=== PATIENT | female | born 1965 | race Hispanic/Latino ===

== ENCOUNTER 2017-03-15 12:20 | Emergency (ER) | payer MEDICAID ==
[2017-03-15 13:08] LABS: Basophils % (Auto) 0.4 % (0.0-1.8); Eosinophils % (Auto) 0.6 % (0.0-4.3); Mean Corpuscular HGB Conc 34 % (30-34); Mean Corpuscular Hemoglobin 34 pg (28-32); Mean Corpuscular Volume 99 fl (79-97); Platelet Count 194 K/mm3 (140-440); Red Blood Count 4.76 M/mm3 (3.65-5.03); Red Cell Distribution Width 12.9 % (13.2-15.2); White Blood Count 11.9 K/mm3 (4.5-11.0)
[2017-03-15 13:23] LABS: Anion Gap 25 mmol/L; Blood Urea Nitrogen 8 mg/dL (7-17); Calcium 9.3 mg/dL (8.4-10.2); Carbon Dioxide 24 mmol/L (22-30); Chloride 92.3 mmol/L (98-107); Glucose 62 mg/dL (65-100); Potassium 4.3 mmol/L (3.6-5.0); Sodium 137 mmol/L (137-145)
[2017-03-15 13:53] LABS: Urine Drugs of Abuse Note Disclamer
[2017-03-15 13:55] LABS: Bilirubin,Urine NEG (Negative); Blood,Urine NEG (Negative); Ketones,Urine 20 mg/dL (Negative); Leukocyte Esterase,Urine NEG (Negative); Mucus,Urine 2+ /HPF; Nitrite,Urine NEG (Negative)
[2017-03-15] MEDS ORDERED: BOOSTRIX IM ONE (21:19)
[2017-03-15] MEDS ORDERED: ANCEF IM ONE (21:20)
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
[2017-03-16] MEDS ORDERED: BOOSTRIX IM ONE (00:41)
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
[2017-03-16] MEDS ORDERED: LaMICtal PO ONE (20:19)
[2017-03-16] MEDS: MINIPRESS PO SCH (22:23)
[2017-03-17] MEDS: NEURONTIN PO SCH ×4 (09:42→20:02)
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
[2017-03-17] MEDS ORDERED: NEURONTIN PO SCH (20:00)
[2017-03-17] MEDS ORDERED: LaMICtal PO SCH (22:00)
[2017-03-17] MEDS: MINIPRESS PO SCH (22:02)
[2017-03-18] MEDS ORDERED: NEURONTIN ONE (09:05)
[2017-03-18] MEDS: NEURONTIN PO SCH ×2 (09:39→14:55)
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
--- NOTE | 2017-03-18 15:52 | Emergency Department Report ---
Blank Doc - Documentation Documentation: Patient was seen and evaluated by mental health after being in the ED for several days. Mental health recommends to rescind 1013 and to continue medications. Patient will follow up with Mag paulson. Outpatient psychiatric medication will be provided as suggested.
[2017-03-18 15:54] VITALS: BP 111/81
== END 2017-03-18 16:33 | disposition home or self-care (01) ==
LOC: ED 12:20 → EEVIPCON 12:20 → ED 03-18 16:33
DX: R45.851 Suicidal ideations (principal); S61.412A Laceration without foreign body of left hand, initial encounter; F32.9 Major depressive disorder, single episode, unspecified; C76.0 Malignant neoplasm of head, face and neck; F41.9 Anxiety disorder, unspecified; F17.200 Nicotine dependence, unspecified, uncomplicated; F14.10 Cocaine abuse, uncomplicated; F11.10 Opioid abuse, uncomplicated; J44.9 Chronic obstructive pulmonary disease, unspecified; F19.10 Other psychoactive substance abuse, uncomplicated; W45.8XXA Other foreign body or object entering through skin, initial encounter; Y93.89 Activity, other specified; Y92.89 Other specified places as the place of occurrence of the external cause; Y99.8 Other external cause status
CPT/HCPCS: 12001; 36415; 80048; 80307; 81001; 82550; 82962; 84484; 85025; 90471; 90715; 93005; 93010; 96372; 99285; G0480; J0690; 80320